=== PATIENT | male | born 1990 | race African-American/Black ===

== ENCOUNTER 2017-07-21 21:38 | Emergency (ER) | payer MEDICAID, OTHER ==
[~2017-07-21] VITALS: Ht 185.4 cm; Wt 70.8 kg
[~2017-07-21 21:38] MED LIST: CLIN-80 PO; NORCO10T PO; PERM59LI4 TP
[2017-07-21 22:25] VITALS: BP 129/75
[2017-07-21 22:27] LABS: ALANINE AMINOTRANSFERASE 21 U/L (12-78); ALBUMIN/GLOBULIN RATIO 1.2 (1.1-1.5); ALKALINE PHOSPHATASE 45 IU/L (46-116); ANION GAP 12 (8-16); ASPARTATE AMINO TRANSFERASE 16 U/L (10-37); BILIRUBIN,TOTAL 0.7 MG/DL (0.1-1.0); BLOOD UREA NITROGEN 8 MG/DL (7-18); BUN/CREATININE RATIO 7.5 (5.4-32.0); CALCIUM 9.1 MG/DL (8.5-10.1); CHLORIDE 106 MMOL/L (99-107); CREATININE 1.07 MG/DL (0.60-1.10); ETHANOL < 0.010 GM/DL (0.0-0.010); GLUCOSE 101 MG/DL (70-104); LIPASE < 50 U/L (73-393); SODIUM 144 MMOL/L (135-145); TOTAL CARBON DIOXIDE 25.6 MMOL/L (24-32); TOTAL PROTEIN 7.3 G/DL (6.4-8.2); eGFR > 90 ML/MIN
[2017-07-21] MEDS: ondansetron/PF 4mg/2ml inj IV ONE (22:33)
[2017-07-21] MEDS: normal saline 1000ML IV soln IVB ONE (22:33)
[2017-07-21 22:48] LABS: CLARITY,URINE Clear (Clear); COLOR,URINE Yellow (Yellow); GLUCOSE, URINE Negative (Neg); KETONES,URINE Negative (Neg); LEUKOCYTE ESTERASE ,URINE Negative (Neg); NITRITES, URINE Negative (Neg); OCCULT BLOOD,URINE Negative (Neg); PROTEIN,URINE Negative (Neg)
[2017-07-21] MEDS: dicyclomine 10mg/ml 2ml ampule IM ONE (22:50)
[2017-07-21] MEDS: proCHLORperazine 10 MG/2 ml inj IV ONE (22:50)
[2017-07-21] MEDS: ketorolac tromethamine 15mg/ml inj. IV ONE (22:51)
[2017-07-21 22:53] LABS: URINE AMPHETAMINE SCREEN NEGATIVE (Neg); URINE BARBITUATE SCREEN NEGATIVE (Neg); URINE BENZODIAZEPINES SCREEN NEGATIVE (Neg); URINE CANNABINOID SCREEN POSITIVE (Neg); URINE COCAINE SCREEN NEGATIVE (Neg); URINE METHADONE SCREEN NEGATIVE (Neg); URINE OPIATE SCREEN NEGATIVE (Neg); URINE PHENCYCLIDINE SCREEN NEGATIVE (Neg)
[2017-07-21] MEDS: diphenhydrAMINE 25mg capsule PO ONE (22:53)
[2017-07-21 22:56] LABS: UA COLLECTION TYPE CLN CATCH MIDSTREAM
[2017-07-21 23:00] LABS: BASOPHILS % (AUTO) 0.4 % (0-1); EOSINOPHILS # (AUTO) 0.2 X10'3 (0-0.9); EOSINOPHILS % (AUTO) 1.7 % (0-6); HEMATOCRIT 45.8 % (42.0-52.0); HEMOGLOBIN 15.9 g/dl (14.0-17.9); LYMPHOCYTES # (AUTO) 1.9 X10'3 (1.1-4.8); MEAN CORPUSCULAR HGB CONC 34.6 % (33.0-36.5); MEAN CORPUSCULAR VOLUME 92.3 FL (78-98); MONOCYTES # (AUTO) 0.7 X10'3 (0-0.9); MONOCYTES % (AUTO) 7.3 % (2-12); NEUTROPHILS # (AUTO) 6.7 X10'3 (1.8-7.7); NEUTROPHILS % (AUTO) 70.6 % (42-75); RED BLOOD COUNT 4.96 X10'6 (4.70-6.10); RED CELL DISTRIBUTION WIDTH 14.2 % (11.5-14.5)
[2017-07-21 23:16] LABS: PLATELET COUNT 111 X10'3 (140-440); WHITE BLOOD COUNT 9.9 X10'3 (4.5-11.0)
[2017-07-21 23:17] LABS: MEAN PLATELET VOLUME 10.8 FL (7.4-10.4)
[2017-07-21] MEDS ORDERED: ONDA4TAB12 PO (23:31)
[2017-07-21] MEDS ORDERED: DICY10CA88 PO (23:31)
[2017-07-21 23:32] LABS: LARGE PLATELETS FEW; PLATELET ESTIMATE DECREASED
== END 2017-07-21 23:43 | disposition home or self-care (01) ==
LOC: ER 21:39
DX: R10.13 Epigastric pain (principal); R11.10 Vomiting, unspecified; E87.6 Hypokalemia; F12.10 Cannabis abuse, uncomplicated; Z56.0 Unemployment, unspecified; Z79.899 Other long term (current) drug therapy
CPT/HCPCS: 36415; 74018; 80053; 80305; 80320; 81003; 83690; 85025; 96361; 96372; 96374; 96375; 99285; J0500; J0780; J1885; J2405; J7030; Q0163

== ENCOUNTER 2024-09-13 17:46 | Emergency (ER) | payer MEDICAID, OTHER ==
[~2024-09-13] VITALS: Ht 182.9 cm; Wt 71.9 kg
[~2024-09-13 17:46] MED LIST changes: -CLIN-80 PO; +CLIN-97 PO; +DICY10CA88 PO; +LIDO15SO9 PO; +ONDA-243 PO
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
[2024-09-13 18:09] VITALS: BP 121/102; PULSE 56; RESP 16; O2SAT 98
--- NOTE | 2024-09-13 18:15 | ELECTROCARDIOGRAPH REPORT ---
[facility] Test Date: 2024-09-13 Test Time: 18:11:31 Pat Name: KATHYA BENAVIDEZ Department: EMERGENCY ROOM Room: Gender: M [employer] Installer: POWER : 1990 Requested By: AASHISH FRAUSTO Order Number: [id number] Reading MD: Dr. Surinder Vargas Measurements Intervals [place] Rate: 50 P: 75 NH: 160 QRS: 90 QRSD: 101 T: 80 QT: 434 QTc: 396 Interpretive Statements Sinus bradycardia Atrial premature complex Inferior infarct, acute (LCx) ST elevation, consider anterior injury Electronically Signed On 09-18-2024 18:38:[address] Surinder Vargas Please click the below link to view image of tracing.
--- NOTE | 2024-09-13 18:19 | RADIOLOGY REPORT ---
CLINICAL INDICATION: fall TECHNIQUE: DI WRIST, COMPLETE (3VW MIN) Comparison: None FINDINGS/IMPRESSION: : There is no evidence of acute fracture or dislocation. Soft tissues are unremarkable.
--- NOTE | 2024-09-13 18:20 | RADIOLOGY REPORT ---
CLINICAL INDICATION: HAND PAIN TECHNIQUE: DI HAND, COMPLETE (3VW MIN) Comparison: None FINDINGS/IMPRESSION: : There is no evidence of acute fracture or dislocation. Chronic Distal 5th metacarpal fracture deformity. Normal mineralization alignment. Joint spaces preserved. Overlying soft tissues are intact.
[2024-09-13] MEDS: ibuprofen tablet 400 MG TABLET PO ONE (18:42)
[2024-09-13] MEDS: TETanus/Pertussis (Acell)/Diphther VAC/PF (Tdap-Adult) 0.5ml syringe IMVAC ONE (18:42)
[2024-09-13 19:01] VITALS: TEMP 97.6
== END 2024-09-13 19:02 | disposition home or self-care (01) ==
LOC: ER 17:47
DX: M79.641 Pain in right hand (principal); F12.90 Cannabis use, unspecified, uncomplicated; Z79.899 Other long term (current) drug therapy
CPT/HCPCS: 73110; 73130; 82948; 93005; 99284; J7030; 99285